=== PATIENT | male | born 1960 | race American Indian/Alaskan Native ===

== ENCOUNTER 2022-01-28 08:13 | Emergency (ER) | payer SELFPAY ==
[2022-01-28] MEDS ORDERED: HYDROcodone/ACETAMINOPHEN 10-325MG TAB PO ONE (12:24)
--- NOTE | 2022-01-28 13:34 | XRay Report ---
LEFT KNEE 3 VIEW(S) INDICATION / CLINICAL INFORMATION: left knee pain COMPARISON: None available. FINDINGS: BONES / JOINT(S): No acute fracture or subluxation. No significant arthritis. Small joint effusion. SOFT TISSUES: No significant abnormality. ADDITIONAL FINDINGS: None. IMPRESSION: 1. Small left knee joint effusion. Signer Name: Anne Oconnor MD Signed: 01/28/2022 1:29 PM Workstation Name: [id number]
--- NOTE | 2022-01-28 13:37 | Emergency Department Report ---
ED Lower Extremity HPI - General Chief Complaint: Extremity Problem,Nontraumatic Stated Complaint: PAIN LEG/KNEE Time Seen by Provider: 01/28/22 12:20 Source: patient Mode of arrival: Ambulatory Limitations: No Limitations - History of Present Illness Initial Comments: This is a 61-year-old male nontoxic, well nourished in appearance, no acute signs of distress presents to the ED with c/o of right knee pain with radiation to right calf with leg swelling several days. History of knee arthritis. Patient denies any injuries or trauma. Patient denies any numbness, tingling, fever, chills, nausea, vomiting, chest pain, shortness of breath, headache, stiff neck. Patient denies any joint swelling or joint redness. Patient denies decreased range of motion. Patient stated has decreased gait due to pain. Patient denies any allergies. MD Complaint: leg injury -: days(s) Injury: Leg: Left, Knee: Left Severity: mild Severity scale (0 -10): 8 Improves With: immobilization Worsens With: weight bearing, movement, palpation Associated Symptoms: swelling, able to partially bear weight. denies: snap/pop sensation, numbness, tingling, unable to bear weight - Related Data Previous Rx's Medication Instructions Recorded Last Taken Type Naproxen 500 mg PO Q12H PRN #12 tab 01/28/22 Unknown Rx Allergies Allergy/AdvReac Type Severity Reaction Status Date / Time No Known Allergies Allergy Unverified 01/28/22 08:24 ED Review of Systems ROS: Stated complaint: PAIN LEG/KNEE Other details as noted in HPI Comment: All other systems reviewed and negative Constitutional: denies: chills, fever Eyes: denies: eye pain, eye discharge, vision change ENT: denies: ear pain, throat pain Respiratory: denies: cough, shortness of breath, wheezing Cardiovascular: denies: chest pain, palpitations Endocrine: no symptoms reported Gastrointestinal: denies: abdominal pain, nausea, diarrhea Genitourinary: denies: urgency, dysuria Musculoskeletal: denies: back pain, joint swelling, arthralgia Skin: denies: rash, lesions Neurological: denies: headache, weakness, paresthesias Psychiatric: denies: anxiety, depression Hematological/Lymphatic: denies: easy bleeding, easy bruising ED Past Medical Hx - Medications Home Medications: Home Medications Medication Instructions Recorded Confirmed Last Taken Type Naproxen 500 mg PO Q12H PRN #12 tab 01/28/22 Unknown Rx ED Physical Exam - General Limitations: No Limitations General appearance: alert, in no apparent distress - Head Head exam: Present: atraumatic, normocephalic - Eye Eye exam: Present: normal appearance - Neck Neck exam: Present: normal inspection, full ROM. Absent: lymphadenopathy - Respiratory Respiratory exam: Absent: respiratory distress - Cardiovascular Cardiovascular Exam: Present: regular rate - Extremities Exam Extremities exam: Present: full ROM, tenderness, normal capillary refill, calf tenderness. Absent: joint swelling - Expanded Lower Extremity Exam Left Hip exam: Present: normal inspection, full ROM. Absent: tenderness, swelling Upper Leg exam: Present: normal inspection, full ROM. Absent: tenderness, swelling Knee exam: Present: normal inspection, full ROM, tenderness, swelling, full knee extension. Absent: abrasion, laceration, ecchymosis, deformity, crepidus, dislocation, erythema, effusion, pain w/ pronation/supination, posterior draw sign, pain/laxity with valgus, pain/laxity with varus Lower Leg exam: Present: full ROM, tenderness, swelling. Absent: abrasion, laceration, ecchymosis, deformity, crepidus, dislocation, erythema, palpable cord, Cintia's sign Ankle exam: Present: normal inspection, full ROM. Absent: tenderness, swelling Foot/Toe exam: Present: normal inspection, full ROM. Absent: tenderness, swelling Neuro vascular tendon exam: Present: no vascular compromise Gait: Positive: observed and limited by pain - Back Exam Back exam: Present: normal inspection, full ROM - Neurological Exam Neurological exam: Present: alert, oriented X3 - Psychiatric Psychiatric exam: Present: normal affect, normal mood - Skin Skin exam: Present: warm, dry, intact, normal color. Absent: rash ED Course Vital Signs 01/28/22 08:20 Temperature 98.3 F Pulse Rate 100 H Respiratory 18 Rate Blood Pressure 154/90 [Left] O2 Sat by Pulse 100 Oximetry - Reevaluation(s) Reevaluation #1: 01/28/22 13:39 Patient is speaking in full sentences with no signs of distress noted. ED Lower Extremity MDM - Radiology Data [facility] [address] [place] [address] XRay Report Signed Patient: MIK GUTIERREZ MR#: [id number] 4 : 1960 Acct:[id number] Age/Sex: 61 / M ADM Date: 01/28/22 Loc: ED Attending Dr: Ordering Physician: JO NAILS NP Date of Service: 01/28/22 Procedure(s): XR knee 3V LT Accession Number(s): [id number] cc: JO NAILS NP Fluoro Time In Minutes: LEFT KNEE 3 VIEW(S) INDICATION / CLINICAL INFORMATION: left knee pain COMPARISON: None available. FINDINGS: BONES / JOINT(S): No acute fracture or subluxation. No significant arthritis. Small joint effusion. SOFT TISSUES: No significant abnormality. ADDITIONAL FINDINGS: None. IMPRESSION: 1. Small left knee joint effusion. Signer Name: Anne Oconnor MD Signed: 01/28/2022 1:29 PM Workstation Name: [id number] Transcribed By: DT Dictated By: Merlin Oconnor MD Electronically Authenticated By: Merlin Oconnor MD Signed Date/Time: 01/28/221328 DD/ 28 TD/TT: [facility] [address] [place] [address] Vascular Lab Report Signed Patient: MIK GUTIERREZ MR#: [id number] 4 : 1960 Acct:[id number] Age/Sex: 61 / M ADM Date: 01/28/22 Loc: ED Attending Dr: Ordering Physician: JO NAILS NP Date of Service: 01/28/22 Procedure(s): VL venous duplex LE LT Accession Number(s): [id number] cc: JO NAILS NP DUPLEX DOPPLER LOWER EXTREMITY VEINS, LEFT INDICATION / CLINICAL INFORMATION: left leg pain. TECHNIQUE: Duplex doppler imaging was performed through the veins of the left lower extremity using venous compression and other maneuvers. COMPARISON: None available. FINDINGS: LEFT COMMON FEMORAL VEIN: Negative. LEFT FEMORAL VEIN: Negative. LEFT POPLITEAL VEIN: Negative. LEFT CALF VEINS: Negative. ADDITIONAL FINDINGS: Moderate-sized popliteal fossa cyst. IMPRESSION: 1. No sonographic evidence for DVT in the left lower extremity. 2. Moderate left popliteal cyst Signer Name: Anne Oconnor MD Signed: 01/28/2022 4:16 PM Workstation Name: [id number] Transcribed By: DT Dictated By: Merlin Oconnor MD Electronically Authenticated By: eMrlin Oconnor MD Signed Date/Time: 01/28/221615 DD/ 14 TD/TT: - Medical Decision Making This is a 61-year-old male that presents with left knee pain and left leg pain. Patient is stable and was examined by me. I referred patient to an orthopedic doctor for further evaluation for possible MRI. X-ray and Doppler ultrasound has been obtained and dictated by the radiologist. Patient is notified of the imaging report with noted by the patient. No ecchymosis. no joint redness or swelling. Not warm to touch. No signs of cellulites present. Patient was instructed to RICE therapy. Patient received [place] for pain. Patient stated family member will drive patient home after discharge due to possible drowsiness of [place]. Patient is discharged with naproxen. At time of discharge, the patient does not seem toxic or ill in appearance. No acute signs of distress noted. Patient agrees to discharge treatment plan of care. No further questions noted by the patient. Critical care attestation.: If time is entered above; I have spent that time in minutes in the direct care of this critically ill patient, excluding procedure time. ED Disposition Clinical Impression: Strain of left knee and leg Qualifiers: Encounter type: initial encounter Qualified Code(s): S86.912A - Strain of unspecified muscle(s) and tendon(s) at lower leg level, left leg, initial encounter Disposition: 01 HOME / SELF CARE / HOMELESS Is pt being admited?: No Does the pt Need Aspirin: No Condition: Stable Additional Instructions: Follow-up with a primary care and orthopedic doctor in 3-5 days or if symptoms worsen and continue return to emergency room as soon as possible. Prescriptions: Naproxen 500 mg PO Q12H PRN #12 tab PRN Reason: Pain , Severe (7-10) Referrals: MIGEL VILLASEÑOR MD [Primary Care Provider] - 3-5 Days CONRADO MONSIVAIS MD [Staff Physician] - 3-5 Days Time of Disposition: 16:37
--- NOTE | 2022-01-28 16:20 | Vascular Lab Report ---
DUPLEX DOPPLER LOWER EXTREMITY VEINS, LEFT INDICATION / CLINICAL INFORMATION: left leg pain. TECHNIQUE: Duplex doppler imaging was performed through the veins of the left lower extremity using v enous compression and other maneuvers. COMPARISON: None available. FINDINGS: LEFT COMMON FEMORAL VEIN: Negative. LEFT FEMORAL VEIN: Negative. LEFT POPLITEAL VEIN: Negative. LEFT CALF VEINS: Negative. ADDITIONAL FINDINGS: Moderate-sized popliteal fossa cyst. IMPRESSION: 1. No sonographic evidence for DVT in the left lower extremity. 2. Moderate left popliteal cyst Signer Name: Anne cOonnor MD Signed: 01/28/2022 4:16 PM Workstation Name: [id number]
[2022-01-28 17:14] VITALS: BP 139/71
== END 2022-01-28 17:14 | disposition home or self-care (01) ==
LOC: ED 08:13
DX: S86.912A Strain of unspecified muscle(s) and tendon(s) at lower leg level, left leg, initial encounter (principal); M19.90 Unspecified osteoarthritis, unspecified site; Z79.899 Other long term (current) drug therapy; X58.XXXA Exposure to other specified factors, initial encounter; Y93.89 Activity, other specified; Y92.89 Other specified places as the place of occurrence of the external cause; Y99.8 Other external cause status
CPT/HCPCS: 99284